=== PATIENT | female | born 1975 | race Caucasian/White ===

== ENCOUNTER 2016-07-26 20:09 | Emergency (ER) | payer OTHER ==
[~2016-07-26] VITALS: Ht 165.1 cm; Wt 77.3 kg
[~2016-07-26 20:09] MED LIST: CARAFATE 1GM1 G PO; NEXIUM 40MG40 MG PO; ZOFRAN 4MG T4 MG/TAB PO
[2016-07-26 20:11] VITALS: BP 129/85; PULSE 87; TEMP 98.5
[2016-07-26] MEDS ORDERED: SINGULAIR 110 MG/TAB PO (20:13)
[2016-07-26] MEDS ORDERED: FLONASE NASAL S16 GM NS (20:13)
[2016-07-26] MEDS ORDERED: IBU800 M1 PO (20:14)
[2016-07-26] MEDS ORDERED: ZANTAC 150MG T150 MG PO (20:14)
[2016-07-26] MEDS ORDERED: DIFLUCAN150 MG PO (21:45)
[2016-07-26] MEDS ORDERED: ANUSOL HC CREAM30 GM TP (21:45)
== END 2016-07-26 22:00 | disposition home or self-care (01) ==
LOC: COL.ER 20:09
DX: K64.5 Perianal venous thrombosis (principal)